=== PATIENT | female | born 1960 | race Caucasian/White ===

== ENCOUNTER → 2021-09-06 | Outpatient (CLI) | payer BC ==
--- NOTE | 2021-09-06 10:18 | RAD ---
Bilateral Renal Ultrasound, Renal Doppler: History: Uncontrolled hypertension. Technique: Sonographic examination of the kidneys was performed and multiple static images were obtai adam. Color Doppler and arterial spectral analysis was applied as well for a renal ultrasound and renal art ciara ultrasound duplex examination. Renal Ultrasound: Findings: Right Kidney: The right kidney appears normal without hydronephrosis and measures 9.6 cm in length. Left Kidney: The left kidney appears normal without hydronephrosis and measures 9.7 cm in length. Urinary Bladder: The urinary bladder appears within normal limits. Impression: No hydronephrosis. Renal Artery Ultrasound Duplex Examination: Findings: There is normal arterial waveform morphology without abnormally high velocities. Impression: No sonographic evidence of hemodynamically significant stenosis. Electronically signed by: Angelo Land III, MD (09/06/2021 10:16 AM) [facility]
== END ==
LOC: US 07:49
PROVIDERS: ATTEND Family Medicine
DX: N28.9 Disorder of kidney and ureter, unspecified (principal)
CPT/HCPCS: 93975